=== PATIENT | male | born 2000 | race Two or more races ===

== ENCOUNTER 2020-08-18 01:07 | Emergency (ER) | payer OTHER ==
[~2020-08-18] VITALS: Ht 177.8 cm; Wt 91.6 kg
[2020-08-18] MEDS ORDERED: INTESTINEX680 M1 PO (11:19)
[2020-08-18] MEDS ORDERED: PEPCID AC20 MG PO (11:19)
[2020-08-18] MEDS ORDERED: URIN D.S. TABL1 EACH PO (11:26)
== END 2020-08-18 11:51 | disposition home or self-care (01) ==
LOC: ER 01:07
DX: K29.70 Gastritis, unspecified, without bleeding (principal)